=== PATIENT | male | born 1930 | race Caucasian/White ===

== ENCOUNTER → 2019-09-22 | Outpatient (CLI) | payer OTHER ==
[~2019-09-22] VITALS: Ht 182.9 cm; Wt 83.9 kg
[~2019-09-22] MED LIST: ALLER-EASE180 MG PO; ASA81BEC PO; BACLOFEN 10MG T10 MG PO; BRIMONIDINE 0.110 ML EA. EYE; CELEXA 20 MG TA20 MG PO; COZAAR 25 MG TA25 M1 PO; DIAZEPAM 5 MG5 M1 PO; MIACALCIN200 UNIT/1 INH; MOVANTIK25 MG PO; OXYCONTIN15 MG PO; PERCOCET 5-3251 EACH PO; SKELAXIN 800 M800 M1 PO; SYMBICORT160 MCG/4. INH; TURMERIC 500 M1 EACH PO; VITAMIN D3 COM1 EACH PO; VYZULTA5 ML OPHTHALMIC; XTAMPZA ER13.5 MG PO; ZOCOR 10 MG TAB10 MG PO
[2019-09-22 14:59] VITALS: BP 156/71
--- NOTE | 2019-09-22 15:45 | NUR ---
Pain Clinic Assessment: 1. History of Osteoarthritis: SPINE History of Rheumatoid Arthritis: NONE 2. Height: 6 ft. 0 in. 182.9 cm. Weight: 185.0 lb. oz. 83.916 kg. Patient's BMI: 25.1 3. Vital Signs: BP: 156/71 Pulse: 71 Resp: 16 Temp: 02 Sat: 98 ECG Mon: 4. Pain Intensity: 7-10 5. Fall Risk: Dizziness: N Needs help standing or walking: Y Fallen in the last 3 months: N Fall risk comments: 6. Patient on Blood Thinner: None 7. History of Hypertension: Y 8. Opioid Therapy greater than 6 weeks: Y Opiate Contract Signed: 9. Risk Assessment Tool Provided: 1-LOW RISK 10. Functional Assessment Tool: 50/70 11. Recreational Drug Use: Never Drug Type: Tobacco Use: Never Smoker Tobacco Type: Amount or Packs/day: How Many Years: Alcohol Use: Yes Frequency: Special Occasions Quant:
--- NOTE | 2019-09-29 13:20 | HPC ---
[facility] [address] [place] [address] PAIN MANAGEMENT CONSULTATION Name: SHIRA GHOSH Room #: REG Max PavonWayneHardy.#: [id number] Admission: 09/22/19 Attend Phys: Deion Clement DO Discharge: Date of : 10/21/30 Report #: [id number] THIS REPORT FOR: cc: Dell Maza MD, Gazala MD Johnson, James E. DO ~ DATE OF SERVICE: 09/22/2019 REFERRING PHYSICIAN: Renée Romano NP CHIEF COMPLAINT: Axial back pain. HISTORY OF PRESENT ILLNESS: As you know, the patient is a very pleasant an 88-year-old male who reports acute onset of low back pain that began 05/07/2019. The patient continued to experience pain and ultimately underwent imaging studies, which showed inferior endplate compression deformity with reactive enhancement at T9 with a 15% loss of height, superiorly and inferior endplate compression fracture at L1 resulting in 25% loss with reactive enhancement. There is also superior endplate compression deformity at L2 resulting in 15%, height loss with reactive enhancement. The patient has had augmentation procedures done at T10, T11 and T12, recently with Dr. Kilgore at [facility]. Unfortunately, the patient has suffered new spontaneous compression fractures without inciting injury or trauma. This patient evaluation through Neurosurgery who referred the patient to our clinic to discuss options for treatment. The patient indicates today pain is constant. He describes the pain as aching and sharp. Places current pain score 10/10, daily average of 7-10/10, worst pain has been is 10/10. The patient states pain is exacerbated with getting out of bed and getting up and down from chairs. He states pain is improved with pain medication and lying down. He has been referred to our clinic to discuss the treatment options for acute compression fractures. PAST MEDICAL HISTORY: 1. Anxiety disorder. 2. Hypertension. 3. Dyslipidemia. 4. Chronic obstructive pulmonary disorder. 5. Asthma. 6. History of melanoma. PAST SURGICAL HISTORY: 1. Reattachment of retina in 1978. 2. Herniorrhaphy. 3. Surgical excision of melanomas. [facility] [address] [place] [address] PAIN MANAGEMENT CONSULTATION Name: SHIRA GHOSH Room #: REG ACE Howe#: [id number] Admission: 09/22/19 Attend Phys: Deion Clement DO Discharge: Date of : 10/21/[birth year] Report #: [id number] 4. Hemorrhoid surgery. 5. Prostate surgery. 6. Microdiskectomy. SOCIAL HISTORY: The patient reports he is a current nonsmoker. Denies IV or illicit drug use. Admits to occasional alcohol beverage. He is a retired [employer], retired in 1991, not receiving workmen's compensation nor is he trying to obtain disability benefits. Unaccompanied at today's visit. REVIEW OF SYSTEMS: Positive for weight change, decrease in appetite, fatigue and weakness; eye disease, wearing corrective eyewear; cataracts, hearing loss with tinnitus, rhinitis, shortness of breath walking and/or lying flat, asthma, wheezing, loss of appetite, changes in bowel movements, constipation, nocturia, sexual difficulty, memory loss with confusion, nervousness, depression, insomnia, slow to heal after cuts, bleeding and bruising tendencies, anemia. All other review of systems negative per 12-point review of systems other than those listed in history of present illness. Pain impact score of 50 of 70 indicating severe interference of daily activities secondary to pain. IMAGING: MRI of the lumbar spine shows new compression fractures at T9, L1 and L2. Augmentation procedure is noted at T10, T11 and T12. PQRS: The patient has known arthritic changes of the thoracic and lumbar spine as well as cervical spine, bilateral shoulders and hips. No rheumatoid arthritis. He is placing pain intensity anywhere from 7-10/10. He is a fall risk, but has not had a fall in last 3 months. He is not on blood thinners, but is treated for hypertension. He is on chronic opioids and has a low opioid addiction potential. Pain impact score again is 50/70, severe interference of daily activities secondary to pain. PHYSICAL EXAMINATION: VITAL SIGNS: Blood pressure 156/71, pulse of 71, respiratory rate 16 and unlabored. The patient is 98% on room air, height 6 feet tall, weight 185 pounds, BMI calculated 25.1. GENERAL: A well-developed, well-nourished, well-hydrated 88-year-old male appearing stated age, placing current pain score 7/10. HEENT: Normocephalic, atraumatic. Pupils are equal, round and reactive. LUNGS: Clear, no wheeze, rhonchi or rales. There was a prolonged expiratory phase. CARDIOVASCULAR: Regular. No appreciable gallop, no rub. ABDOMEN: Soft, nontender. EXTREMITIES: Show no clubbing, no cyanosis, no pitting edema. MUSCULOSKELETAL: Lower extremity strength equal and symmetrical 5/5. Muscle [facility] [address] [place] [address] PAIN MANAGEMENT CONSULTATION Name: SHIRA GHOSH Room #: REG ACE Howe#: [id number] Admission: 09/22/19 Attend Phys: Deion Clement DO Discharge: Date of : 10/21/30 Report #: [id number] tone and bulk equal and symmetrical in comparing lower extremities. Deep tendon reflexes are 2+/4 at patella and Achilles. Ankle clonus negative. Babinski is negative. Gait is antalgic. He is unable to toe walk and heel walk. Pain is elicited with palpation throughout the lower thoracic and upper lumbar area consistent with the fractures noted on MRI. ASSESSMENT: 1. Vertebral compression fracture at T9. 2. Vertebral compression fracture at L1. 3. Vertebral compression fracture at L2. 4. Chronic intractable pain. PLAN: 1. Based on today's physical exam and history the patient has provided, the description the patient uses in regards to pain as well as location of symptoms and the findings of the MRI, it would appear the patient is suffering from recurrent vertebral compression fractures. He has had a vertebral augmentation at the T10, T11 and T12 levels by Dr. Kilgore at [facility]. He has been advised of these new fractures at T9, L1 and L2, but wished to discuss options for treatment before moving forward with kyphoplasty. The patient was sent to our clinic to discuss those options. We discussed physical therapy, stretching exercises, core strengthening as a treatment course. We discussed medication management with or without a Pathfork brace. We discussed Pathfork bracing system with a combination of physical therapy and medication management. We also discussed vertebral augmentation through [facility]'s Interventional Radiology Department. After reviewing the risks and benefits of all the proposed treatment options, the patient chose to begin with medication management and consider the possibility of undergoing vertebral augmentation. 2. The patient will be started on oxycodone ER 15 mg dose 1 tab p.o. b.i.d. Given the patient #60 tablets. This will take the place of his immediate release medication, which he is taking multiple times in the day. This should help with his overall pain. I have given the patient the medication today. Advised to take as directed. He is to watch for side effects of sleepiness, disorientation, confusion, mental slowing. If he notes these side effects, discontinue immediately, contact our clinic. 3. The patient will be started on baclofen 10 mg dose 1 tab p.o. t.i.d. p.r.n. for muscle spasms. I have given the patient #90 tablets, advised to watch for sleepiness, disorientation, confusion, mental slowing with its use. If he notes any side effects, contact our clinic after discontinuation of its use. 4. The patient will be started on Movantik 25 mg dose, this will help with the patient's constipation related to opioid use. He has noted exacerbation of these symptoms over the past couple of weeks with the use of opioids and this is the medication of choice to alleviate opioid-induced constipation. He was given #30 tablets, no refills. The patient was advised to take this on a daily basis. [address] [address] PAIN MANAGEMENT CONSULTATION Name: SHIRA GHOSH Room #: REG ACE Howe#: [id number] Admission: 09/22/19 Attend Phys: Deion Clement DO Discharge: Date of : 10/21/[birth year] Report #: [id number] 4. We strongly recommend the patient contact Interventional Radiology at [facility] and discuss the possibility of undergoing kyphoplasty procedures at the T9, L1 and L2 level as these are acute fractures that would be amenable to the procedure. The patient will consider this option. He will contact our clinic if he wishes to move forward. The patient has contact with Dr. Kilgore's office. We recommend he contact them to establish a return appointment. Apparently, his MRI has been reviewed by the interventional radiologist and they have advised him he could undergo this procedure. He will keep us apprised whether or not he moves forward with augmentation. 5. We wish to thank Renée Romano for the referral of the patient to our clinic. We are hopeful the information provided herein is beneficial in continuing his treatment. We started on a long-acting medication. He can follow up with his PCP to continue this therapy if it is necessary or can follow back with our clinic to wean off the opioid medication once the augmentation has been completed. <ELECTRONICALLY SIGNED> By: Deion Clement DO 09/29/19 1320 [id number] Deion Clement DO /nt
== END ==
LOC: PAIN 09:27
PROVIDERS: ATTEND Anesthesiology Pain Medicine
DX: M48.56XA Collapsed vertebra, not elsewhere classified, lumbar region, initial encounter for fracture (principal); M48.54XA Collapsed vertebra, not elsewhere classified, thoracic region, initial encounter for fracture; G89.29 Other chronic pain; I10 Essential (primary) hypertension; F41.9 Anxiety disorder, unspecified; E78.5 Hyperlipidemia, unspecified; F11.20 Opioid dependence, uncomplicated; J44.9 Chronic obstructive pulmonary disease, unspecified; Z98.890 Other specified postprocedural states; Z79.899 Other long term (current) drug therapy

== ENCOUNTER → 2019-10-06 | Outpatient (CLI) | payer OTHER ==
[~2019-10-06] VITALS: Ht 182.9 cm; Wt 83.0 kg
[2019-10-06 15:05] VITALS: BP 145/67
--- NOTE | 2019-10-06 15:29 | NUR ---
Pain Clinic Assessment: 1. History of Osteoarthritis: SPINE History of Rheumatoid Arthritis: NONE 2. Height: 6 ft. 0 in. 182.9 cm. Weight: 183.0 lb. oz. 83.008 kg. Patient's BMI: 24.8 3. Vital Signs: BP: 145/67 Pulse: 81 Resp: 18 Temp: 02 Sat: 97 ECG Mon: 4. Pain Intensity: 6 5. Fall Risk: Dizziness: N Needs help standing or walking: Y Fallen in the last 3 months: N Fall risk comments: 6. Patient on Blood Thinner: None 7. History of Hypertension: Y 8. Opioid Therapy greater than 6 weeks: Y Opiate Contract Signed: 9. Risk Assessment Tool Provided: 1-LOW RISK 10. Functional Assessment Tool: 50/70 11. Recreational Drug Use: Never Drug Type: Tobacco Use: Never Smoker Tobacco Type: Amount or Packs/day: How Many Years: Alcohol Use: Yes Frequency: Quant:
--- NOTE | 2019-10-19 09:16 | HPC ---
[facility] [address] [address] [place] [address] PAIN MANAGEMENT CONSULTATION Name: SHIRA GHOSH Room #: REG ACE Shyam#: [id number] Admission: 10/06/19 Attend Phys: Deion Clement DO Discharge: Date of : 10/21/[birth year] Report #: [id number] THIS REPORT FOR: cc: Dell Maza MD, Gazala MD Johnson, James E. DO ~ DATE OF SERVICE: 10/06/2019 CHIEF COMPLAINT: Axial back pain. HISTORY OF PRESENT ILLNESS: As you know, the patient is a very pleasant 88-year-old male who reported acute onset of low back pain began on 05/07/2019. He continued to experience pain, ultimately undergoing imaging, which showed inferior endplate compression fractures at T9, L1 and L2. The patient sought evaluation after fractures were found and advised his symptoms may be related to SI joint pain. The patient, as you are aware, had previous augmentation procedures done at T10, T11 and T12 for spontaneous fractures with Dr. Kilgore at [facility] with resolution of symptoms. He was doing well when his pain reoccurred in April. We saw the patient in consultation per the request of nurse practitioner, Renée Romano on 09/29/2019. He was diagnosed with a vertebral compression fracture of T9, vertebral compression fracture of L1 and vertebral compression fracture of L2 leading to chronic intractable pain. At that time, the patient had no sacroiliac joint discomfort and no pain in the area. His examination was benign in the sacroiliac area, but positive for pain in the upper lumbar lower thoracic area consistent with his fractures. We discussed options for treatment at that time and advised the patient to look into possible vertebral augmentation, but also to trial medication management. He returned to see Neurosurgery to discuss further the vertebral augmentation recommendations for T9, L1 and L2. They advised to trial SI joint injection, though the patient had indicated he had no symptoms in the area. He was subsequently referred back to our clinic. He has been seen today reporting pain in the axial back consistent with his vertebral compression fractures, classifying pain at a level of 6/10. He has mild discomfort over the lower facet joints for which the neurosurgery team wished us to address with SI joint injections. The patient denies difficulty with standing or sitting, which would be consistent with SI joint dysfunction. His symptoms of axial back pain are present throughout the day, exacerbated with movement. He has been referred back to our clinic to discuss diagnostic SI joint injections. He is placing pain today at 6/10. ALLERGIES: No known drug allergies. CURRENT MEDICATIONS: Percocet 5/325 one tab every 8 hours p.r.n. for pain, metaxalone 800 mg 4 times a day, Movantik 25 mg once a day, Symbicort 160/4.5 mcg inhaled twice a day, turmeric 500 mg once a day, Vyzulta drops ____ eye each [address] [address] PAIN MANAGEMENT CONSULTATION Name: SHIRA GHOSH Room #: REG ACE Howe#: [id number] Admission: 10/06/19 Attend Phys: Deion Clement DO Discharge: Date of : 10/21/[birth year] Report #: [id number] per day, aspirin 81 mg per day, fexofenadine 180 mg per day, simvastatin 10 mg per day, citalopram 20 mg per day and losartan 25 mg per day. SOCIAL HISTORY: He is a current nonsmoker. Denies IV or illicit drug use. Admits occasional alcohol beverage. He retired from the [employer] in 1981, not receiving workmen's compensation, accompanied by present in room today. IMAGING: No new imaging available. PQRS: The patient has known arthritic changes of the thoracic lumbar spine, cervical spine, bilateral shoulders and hips. No rheumatoid arthritis. Pain today is rated again at 6/10. He is a fall risk, but has not had a fall in last 3 months. He is not on blood thinners, but is treated for hypertension. He is on chronic opioids, has a low opiate addiction potential. Pain impact score remains 50/70. Severe interference of daily activities secondary to pain. PHYSICAL EXAMINATION: VITAL SIGNS: Blood pressure 145/67, pulse 81, respiratory rate 18 and unlabored. The patient is 97% on room air, height 6 feet tall, weight 183 pounds, BMI calculated 24.8. GENERAL: Well-developed, well-nourished, well-hydrated 88-year-old male appearing stated age. He is in mild distress secondary to pain, placing current pain score 6/10. HEENT: Normocephalic, atraumatic. LUNGS: Remain clear. CARDIOVASCULAR: Regular. No appreciable gallop, no rub. EXTREMITIES: Show no clubbing, no cyanosis, no edema. MUSCULOSKELETAL: The patient once again has tenderness to palpation over the lower thoracic upper lumbar area consistent with his presentation at our last visit. He has some mild tenderness in the lower facet joints of the lumbar spine. Seated straight leg raising is negative. Supine straight leg raising is positive only for axial back pain provocation. No radicular component. Clarisa's test is negative. Compression over the SI joint is negative for any discomfort. Lumbar provocation testing is met with increased pain and inability to continue that provocating testing. ASSESSMENT: 1. Vertebral compression fracture of T9. 2. Vertebral compression fracture of L1. 3. Vertebral compression fracture of L2. 4. Axial back pain. 5. Chronic intractable pain. PLAN: 1. The patient has returned today in followup visit with a second request from [address] [address] PAIN MANAGEMENT CONSULTATION Name: SHIRA GHOSH Room #: REG ACE Howe#: [id number] Admission: 10/06/19 Attend Phys: Deion Clement DO Discharge: Date of : 10/21/[birth year] Report #: [id number] Neurosurgery to address SI joint pain. The patient shows minimal discomfort in the area. Provocating factors do not lend itself to SI joint dysfunction. The patient is requesting that we at least to trial this diagnostic block as he has been advised that this is the source of his symptoms. Based on the physical exam, this does not appear to be the case. The patient indicates that Neurosurgery has requested this as a treatment course. I have advised him that the injection itself will likely provide no improvement in symptoms though we would be willing to provide the injection to at least help in further diagnostic process. The patient is agreeable to undergo the procedure requested by his neurosurgery team. The patient was advised of the risks of bilateral SI joint injections. These risks include but are not necessarily limited to bleeding, bruising, infection, worsening pain, no relief of pain, temporary or permanent muscle weakness, temporary or permanent nerve damage, possible paralysis, allergic reaction to medications and . The patient states understood and wished to proceed. 2. The patient and I had a very long discussion today about the compression fractures at T9, L1 and L2, which appear to be the source of the symptoms. We recommend that he follow up with Dr. Lassiter and Dr. Kilgore at [facility] to discuss the possibility of undergoing vertebral augmentation. I believe this would be the most effective treatment for his vertebral compression fractures and likely significant pain improvement. The patient was given a referral back to Dr. Kilgore and Dr. Lassiter for vertebral augmentation at these 3 levels. 3. We made adjustments in the patient's medication due to insurance coverage issues. He was placed on Xtampza 13.5 mg b.i.d. We will watch for efficacy of medication. He is yet to pick this medication up. 4. Our plan is to see the patient back in followup visit in a couple of weeks. At that time, he will have addressed his vertebral compression fractures and we can discuss efficacy of the SI joints injections provided today. PROCEDURE NOTE DESCRIPTION OF PROCEDURE: Bilateral SI joint injections under fluoroscopic guidance. This is the first procedure of the first series that the patient is undergoing. After obtaining written consent, the patient was taken back to the fluoroscopy suite and placed in a prone position with a pillow under the pelvis to decrease the lumbar lordosis. The skin of the gluteal-sacral area overlying the bilateral sacroiliac joint was prepped and draped in an aseptic fashion. A medial to lateral oblique projection allowed separation of the anterior and posterior branches of the joint space. The skin and subcutaneous tissue overlying the target site of injection was anesthetized using 3 mL of 1% lidocaine. A 22 gauze 3.5 inch needle with a bent tip was directed into the [address] [address] PAIN MANAGEMENT CONSULTATION Name: JAGJITRAULSHIRA HOWARD Room #: REG CLMax Howe#: [id number] Admission: 10/06/19 Attend Phys: Deion Clement DO Discharge: Date of : 10/21/[birth year] Report #: [id number] inferior aspect of the sacroiliac joint using a posterior approach. After negative aspiration for heme, a total of 0.5 mL of Omnipaque was injected, outlining the coin-shaped inferior recess of the joint. Provocation responses consisting of intense buttock pain were negative. After negative aspiration for heme, 4 mL of solution containing 2 mL 40 mg per mL, 80 mg total triamcinolone and 2 mL bupivacaine 0.5% injected bilaterally was slowly injected. The needle was then retracted approximately mcfp and the needle track was flushed with 1 mL of 1% lidocaine. Needle was then removed. A sterile bandage was placed over the injection site. There were no new sensory deficits present in the lower extremities. The heart rate, pulse oximetry and blood pressure were continuously monitored after the procedure. There were no apparent complications. The patient tolerated the procedure well and was carefully escorted to the recovery room in stable condition. The VAS was 6/10 before the procedure and 6/10 ten minutes after the procedure. After meeting discharge criteria, the patient was discharged home. ADDENDUM Dated 10/13/2019, we had received a telephone call from the patient today. SI joint injections provided at our visit of 10/06/2019 provided no improvement in symptoms. He states his pain never varied from a 6/10 level he experienced upon arrival. This would effectively rule out SI joint as a possible cause of symptoms. The patient does indicate he underwent kyphoplasty procedure at T9, L1 and L2 with near complete resolution of symptoms. He had the procedure performed yesterday on 10/12/2019 and has already noticing significant near complete pain improvement. We are pleased to see the patient has done well with the kyphoplasty procedure. We have referred him to from last week. We will see him back in followup visit on an as needed basis. <ELECTRONICALLY SIGNED> By: Deion Clement DO 10/19/19 09 1150 1423 Deion Clement DO /agustin
== END | disposition home or self-care (01) ==
LOC: PAIN 06:58
PROVIDERS: ATTEND Anesthesiology Pain Medicine
DX: M53.3 Sacrococcygeal disorders, not elsewhere classified (principal); S22.070A Wedge compression fracture of T9-T10 vertebra, initial encounter for closed fracture; S32.010A Wedge compression fracture of first lumbar vertebra, initial encounter for closed fracture; S32.020A Wedge compression fracture of second lumbar vertebra, initial encounter for closed fracture; M54.9 Dorsalgia, unspecified; G89.29 Other chronic pain; I10 Essential (primary) hypertension; M19.90 Unspecified osteoarthritis, unspecified site; Z98.890 Other specified postprocedural states; Z79.899 Other long term (current) drug therapy; Z79.82 Long term (current) use of aspirin; Z87.891 Personal history of nicotine dependence; X58.XXXA Exposure to other specified factors, initial encounter; Y93.89 Activity, other specified; Y92.89 Other specified places as the place of occurrence of the external cause; Y99.8 Other external cause status